=== PATIENT | female | born 2000 | race Two or more races ===

== ENCOUNTER 2022-09-28 21:09 | Emergency (ER) | payer OTHER ==
[~2022-09-28] VITALS: Ht 170.2 cm; Wt 67.1 kg
== END 2022-09-28 22:43 | disposition home or self-care (01) ==
LOC: ER 21:09
DX: M25.572 Pain in left ankle and joints of left foot (principal); Z88.6 Allergy status to analgesic agent

== ENCOUNTER 2022-11-09 11:33 | Emergency (ER) | payer OTHER ==
[~2022-11-09] VITALS: Ht 160 cm; Wt 68.0 kg
== END 2022-11-09 14:30 | disposition home or self-care (01) ==
LOC: ER 11:33
DX: K52.89 Other specified noninfective gastroenteritis and colitis (principal); R10.9 Unspecified abdominal pain; Z88.6 Allergy status to analgesic agent

== ENCOUNTER 2023-01-30 08:56 | Emergency (ER) | payer OTHER ==
[~2023-01-30] VITALS: Ht 162.6 cm; Wt 68.0 kg
[2023-01-30 10:23] LABS: HEMATOCRIT 36.9 % (36.0-45.00); MEAN CELL VOLUME 85.6 fL (80.00-100.00); MEAN CORPUSCULAR HEMOGLOBIN 30.2 pg (27.00-32.0); MEAN CORPUSCULAR HGB CONC 35.3 g/dl (32.0-36.0); PLATELET COUNT 299 K/uL (150-450); RED BLOOD COUNT 4.31 M/uL (4.00-6.00); RED CELL DISTRIBUTION WIDTH 12.3 % (11.5-14.5)
== END 2023-01-30 10:59 | disposition home or self-care (01) ==
LOC: ER 08:56
DX: O99.511 Diseases of the respiratory system complicating pregnancy, first trimester (principal); J06.9 Acute upper respiratory infection, unspecified; Z3A.01 Less than 8 weeks gestation of pregnancy; Z20.822 Contact with and (suspected) exposure to COVID-19; Z88.8 Allergy status to other drugs, medicaments and biological substances

== ENCOUNTER 2023-04-29 19:59 | Emergency (ER) | payer OTHER ==
[~2023-04-29] VITALS: Ht 162.6 cm; Wt 69.9 kg
[2023-04-29 23:07] LABS: URINE APPEARANCE Clear; URINE BILIRRUBIN Negative (NEGATIVE); URINE BLOOD Negative; URINE COLOR Yellow; URINE GLUCOSE Negative (NEGATIVE); URINE LEUKOCYTE Small; URINE NITRATE Negative; URINE PROTEIN Negative (NEGATIVE)
[2023-04-29 23:10] LABS: HEMATOCRIT 37.3 % (36.0-45.00); HEMOGLOBIN 12.9 g/dL (12.0-15.00); MEAN CELL VOLUME 87.9 fL (80.00-100.00); MEAN CORPUSCULAR HEMOGLOBIN 30.4 pg (27.00-32.0); MEAN CORPUSCULAR HGB CONC 34.6 g/dl (32.0-36.0); PLATELET COUNT 258 K/uL (150-450); RED BLOOD COUNT 4.25 M/uL (4.00-6.00); RED CELL DISTRIBUTION WIDTH 13.6 % (11.5-14.5)
[2023-04-29 23:11] LABS: URINE BACTERIA 1637.9 uL (0.0-1933); URINE EPITHELIAL CELLS 46.8 uL (0.0-38.8); URINE WBC 37.8 uL (0.0-23.2)
[2023-04-29 23:20] LABS: URINE RBC 1.2 uL (0.0-20.8)
[2023-04-29 23:45] LABS: CALCIUM 9.6 mg/dL (8.5-10.1); CREATININE SERUM 0.67 mg/dL (0.55-1.02); GFR 108.13; POTASSIUM 3.34 mEq/L (3.5-5.1)
== END 2023-04-30 01:17 | disposition home or self-care (01) ==
LOC: ER 20:00
PROVIDERS: Emergency Medicine
DX: O23.40 Unspecified infection of urinary tract in pregnancy, unspecified trimester (principal); O99.019 Anemia complicating pregnancy, unspecified trimester; N39.0 Urinary tract infection, site not specified; Z88.8 Allergy status to other drugs, medicaments and biological substances

== ENCOUNTER 2023-06-06 09:49 | Emergency (ER) | payer OTHER ==
[~2023-06-06] VITALS: Ht 162.6 cm; Wt 71.2 kg
[2023-06-06] MEDS ORDERED: PEPCID AC20 MG (10:19)
[2023-06-06 11:55] LABS: HEMATOCRIT 34.1 % (36.0-45.00); MEAN CELL VOLUME 89.8 fL (80.00-100.00); MEAN CORPUSCULAR HEMOGLOBIN 31.6 pg (27.00-32.0); MEAN CORPUSCULAR HGB CONC 35.2 g/dl (32.0-36.0); PLATELET COUNT 226 K/uL (150-450)
[2023-06-06 12:13] LABS: URINE APPEARANCE Clear; URINE BILIRRUBIN Negative (NEGATIVE); URINE BLOOD Negative; URINE COLOR Yellow; URINE GLUCOSE Negative (NEGATIVE); URINE LEUKOCYTE Small; URINE NITRATE Negative; URINE PROTEIN Negative (NEGATIVE)
[2023-06-06 12:14] LABS: URINE BACTERIA 2362.3 uL (0.0-1933); URINE WBC 36.1 uL (0.0-23.2)
[2023-06-06 12:22] LABS: URINE RBC 1.4 uL (0.0-20.8)
== END 2023-06-06 13:08 ==
LOC: ER 09:49
PROVIDERS: General Practice
DX: O23.42 Unspecified infection of urinary tract in pregnancy, second trimester (principal); N39.0 Urinary tract infection, site not specified; Z3A.21 21 weeks gestation of pregnancy

== ENCOUNTER 2024-01-11 07:30 | Emergency (ER) | payer OTHER ==
[~2024-01-11] VITALS: Ht 162.6 cm; Wt 111.1 kg
[~2024-01-11 07:30] MED LIST: PEPCID AC20 MG
== END 2024-01-11 11:34 | disposition home or self-care (01) ==
LOC: ER 07:32
DX: R53.81 Other malaise (principal); J06.9 Acute upper respiratory infection, unspecified; Z20.822 Contact with and (suspected) exposure to COVID-19; Z88.6 Allergy status to analgesic agent